=== PATIENT | male | born 1955 | race Caucasian/White ===

== ENCOUNTER → 2023-09-17 08:41 | Outpatient (REF) | payer MEDICARE, SELFPAY | LOC: WOUND 08:41 | PROVIDERS: ATTENDING PHYSICIAN Surgery | DX: L59.8 Other specified disorders of the skin and subcutaneous tissue related to radiation (principal); T21.25XA Burn of second degree of buttock, initial encounter; I48.91 Unspecified atrial fibrillation; Z79.01 Long term (current) use of anticoagulants; X08.8XXA Exposure to other specified smoke, fire and flames, initial encounter | CPT/HCPCS: 99203 ==

== ENCOUNTER → 2023-09-24 09:08 | Outpatient (REF) | payer MEDICARE, SELFPAY | LOC: WOUND 09:08 | PROVIDERS: ATTENDING PHYSICIAN Surgery | DX: L59.8 Other specified disorders of the skin and subcutaneous tissue related to radiation (principal); T21.25XA Burn of second degree of buttock, initial encounter; I48.91 Unspecified atrial fibrillation; Z79.01 Long term (current) use of anticoagulants; X08.8XXA Exposure to other specified smoke, fire and flames, initial encounter | CPT/HCPCS: 99213 ==

== ENCOUNTER → 2023-10-08 13:29 | Outpatient (REF) | payer MEDICARE, SELFPAY | LOC: WOUND 13:29 | PROVIDERS: ATTENDING PHYSICIAN Surgery | DX: L59.8 Other specified disorders of the skin and subcutaneous tissue related to radiation (principal); T21.25XA Burn of second degree of buttock, initial encounter; X58.XXXA Exposure to other specified factors, initial encounter | CPT/HCPCS: 97597 ==

== ENCOUNTER → 2023-10-22 13:15 | Outpatient (REF) | payer MEDICARE, SELFPAY | LOC: WOUND 13:15 | PROVIDERS: ATTENDING PHYSICIAN Surgery | DX: L59.8 Other specified disorders of the skin and subcutaneous tissue related to radiation (principal); I48.91 Unspecified atrial fibrillation; T21.25XA Burn of second degree of buttock, initial encounter; Z79.01 Long term (current) use of anticoagulants; Y84.2 Radiological procedure and radiotherapy as the cause of abnormal reaction of the patient, or of later complication, without mention of misadventure at the time of the procedure; Y78.1 Therapeutic (nonsurgical) and rehabilitative radiological devices associated with adverse incidents | CPT/HCPCS: 97597 ==